=== PATIENT | female | born 1950 | race Caucasian/White ===

== ENCOUNTER 2016-10-25 10:16 | Emergency (ER) | payer OTHER, MEDICARE ==
[~2016-10-25] VITALS: Ht 162.6 cm; Wt 77.1 kg
[~2016-10-25 10:16] MED LIST: CIPROFLOXACIN500 MG PO; LEVOTHYROXIN0.125 MG PO
--- NOTE | 2016-10-25 10:54 | ED GENERAL ADULT ---
History of Present Illness General Chief Complaint: Lower Extremity Problems Stated Complaint: R LEG PAIN/SWELLING-NO KNOWN INJURY Source: patient Exam Limitations: no limitations Vital Signs & Intake/Output Vital Signs & Intake/Output ED Intake and Output 10/26 0000 10/25 1200 Intake Total Output Total Balance Patient 170 lb Weight Allergies Coded Allergies: tetanus toxoid, adsorbed (Intermediate, HIVES 10/25/16) amoxicillin (Severe, SYNCOPE 10/25/16) Reconcile Medications Levothyroxine Sodium 0.125 MG TAB 0.125 MG PO DAILY AC THYROID (Reported) Omeprazole 20 MG CAPSULE.DR 1 CAP PO DAILY GI (Reported) Triage Note: PT TO ED C/O RIGHT LEG PAIN/SWELLING X 3 DAYS. WORSE THE LAST 2 DAYS. PAIN IS FROM ANKLE TO BEHIND RIGHT KNEE. PT HAS A BRUISE BEHIND RIGHT KNEE, UNSURE WHAT IT IS FROM. PAIN IS WORSE WITH WEIGHT BEARING. Triage Nurses Notes Reviewed? yes Onset: Abrupt Duration: day(s): Timing: recent history HPI: 10/25/16 66-year-old female presents to the emergency department complaining of right lower extremity pain and swelling. 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 Now approximately 3 days ago she developed swelling to the right leg and also noticed some black and blue behind the calf. She has decreased range of motion secondary to the pain. The onset of the symptoms were abrupt, the duration has been approximately 3 days, the severity is significant as her symptoms required her to come to the emergency department for care Past History Travel History Traveled to [place] past 21 day No Medical History Any Pertinent Medical History? see below for history Neurological: NONE EENT: NONE Cardiovascular: NONE Respiratory: NONE Gastrointestinal: GERD, hiatal hernia Hepatic: NONE Renal: NONE Musculoskeletal: ARTHRITIS Psychiatric: NONE Endocrine: hypothyroidism Surgical History Surgical History: non-contributory Psychosocial History What is your primary language Portuguese Tobacco Use: Quit <30 days ago ETOH Use: denies use Illicit Drug Use: denies illicit drug use Family History Hx Contributory? No Review of Systems Review of Systems Constitutional: Denies: fever. EENTM: Denies: visual changes. Respiratory: Denies: short of breath. Cardiovascular: Denies: chest pain. GI: Denies: abdominal pain. Genitourinary: Reports: no symptoms. Musculoskeletal: Reports: see HPI. Skin: Reports: see HPI. Neurological/Psychological: Reports: no symptoms. Hematologic/Endocrine: Reports: bruising. Physical Exam Physical Exam General Appearance: well developed/nourished, alert, awake, anxious, mild distress Head: atraumatic, normal appearance Eyes: Bilateral: normal appearance, PERRL, EOMI. Ears, Nose, Throat: normal pharynx, normal ENT inspection, hearing grossly normal Neck: normal inspection, supple Respiratory: normal breath sounds, chest non-tender, no respiratory distress Cardiovascular: regular rate/rhythm Peripheral Pulses: 4+ brachial (L), 4+ radial (R) Gastrointestinal: non-tender Back: decreased range of motion Extremities: swelling (RIGHT LOWER LEG), tenderness Neurologic/Psych: no motor/sensory deficits, awake, alert, oriented x 3 Skin: intact, normal color, warm/dry Comments: The patient has full range of motion to the right leg. There is tenderness to the right calf and some ecchymosis. Ultrasound was negative for DVT, positive for Beaulieu's cyst - PATIENT: RADHA FAUSTIN PRESENT AGE: 66 PATIENT ACCOUNT NO: [id number] : 49 LOCATION: [facility] ORDERING PHYSICIAN: LAVERNE LEIGH DO SERVICE DATE: 10/25/16 EXAM TYPE: US - US-DUPLEX VENOUS EXTREM UNI EXAMINATION: US LOWER EXTREMITY VEINS, RIGHT CLINICAL INFORMATION: Right leg swelling. Rule out DVT. COMPARISON: None TECHNIQUE: Doppler spectral analysis and color flow Doppler imaging was performed of the lower extremity. Compression and augmentation maneuvers were performed. FINDINGS: The right common femoral, femoral, popliteal veins were well identified and normal. They demonstrate normal compressibility and color fill-in without evidence of venous thrombosis. The visualized mid calf veins demonstrate normal vascular flow. ADDITIONAL FINDINGS: There is a complex cystic focus in the medial aspect of the popliteal fossa, technologist's notes indicate too large to measure in the sagittal plane, measuring approximately 4.3 cm in the transverse plane. No significant internal vascular flow. IMPRESSION: No evidence for right lower extremity deep vein thrombosis. Large complex cystic focus in the medial aspect of the popliteal fossa, probable large Beaulieu's cyst. DICTATED BY: JAH PALENCIA MD DATE/TIME DICTATED:10/25/161229 EPOXY FABRICATION SUPERVISOR:GITA DATE/TIME TRANSCRIBED:10/25/161229 CONFIDENTIAL, DO NOT COPY WITHOUT APPROPRIATE AUTHORIZATION. <Electronically signed in Other Vendor System> SIGNED BY: SLIME CHAMORRO,[facility] [id number] Core Measures ACS in differential dx? No CVA/TIA Diagnosis: No Severe Sepsis Present: No Septic Shock Present: No Progress Differential Diagnoses I considered the following diagnoses in my evaluation of the patient: [DVT, Beaulieu's cyst, ligament injury, vascular injury, popliteal muscle rupture, muscle tear] Plan of Care: Orders Procedure Date/time Status US-DUPLEX VENOUS EXTREM UNI 10/25 1124 Active Initial ED EKG: none Departure Departure Disposition: HOME OR SELF CARE Condition: Stable Clinical Impression Primary Impression: Beaulieu's cyst, ruptured Referrals: ZAN BROCK DO (PCP/Family) Referred to [facility] as new patient No Departure Forms: Customer Survey General Discharge Information Critical Care Note Critical Care Note Critical Care Time: non-applicable Comments: The patient was instructed to follow-up with orthopedist this week, rest, elevation analgesics
[2016-10-25] MEDS ORDERED: OMEPRAZOLE20 M2 PO (11:09)
--- NOTE | 2016-10-25 13:03 | ULTRASOUND REPORT ---
EXAMINATION: US LOWER EXTREMITY VEINS, RIGHT CLINICAL INFORMATION: Right leg swelling. Rule out DVT. COMPARISON: None TECHNIQUE: Doppler spectral analysis and color flow Doppler imaging was performed of the lower extremity. Compression and augmentation maneuvers were performed. FINDINGS: The right common femoral, femoral, popliteal veins were well identified and normal. They demonstrate normal compressibility and color fill-in without evidence of venous thrombosis. The visualized mid calf veins demonstrate normal vascular flow. ADDITIONAL FINDINGS: There is a complex cystic focus in the medial aspect of the popliteal fossa, technologist's notes indicate too large to measure in the sagittal plane, measuring approximately 4.3 cm in the transverse plane. No significant internal vascular flow. IMPRESSION: No evidence for right lower extremity deep vein thrombosis. Large complex cystic focus in the medial aspect of the popliteal fossa, probable large Beaulieu's cyst.
[2016-10-25 13:31] VITALS: BP 134/72
== END 2016-10-25 13:31 ==
LOC: ERH 10:16
DX: M71.21 Synovial cyst of popliteal space [Baker], right knee (principal)